=== PATIENT | male | born 1990 | race Caucasian/White ===

== ENCOUNTER 2017-10-28 07:29 | Emergency (ER) | payer BC ==
[2017-10-28] MEDS ORDERED: KETOROLAC 30 MG/ML INJ ONE (07:55)
[2017-10-28] MEDS ORDERED: NA CHLORIDE 0.9% 1,000 ML ONE (07:56)
[2017-10-28 08:12] LABS: Absolute Lymphocytes (CBC) 2.5 K/uL (0.7-4.9); Absolute Monocytes 0.7 K/uL (0.1-1.3); Absolute Neutrophil 5.8 K/uL (1.8-8.0); Basophils % 0.3 % (0-1.3); Eosinophils % 2.1 % (0-4.4); Hematocrit 44.8 % (39.6-49.0); Lymphocytes % 26.7 % (15.3-44.8); MCH 28.6 pg (27.0-35.0); MCV 85.9 fL (80-100); MPV 9.3 fL (7.6-11.3); Monocytes % 7.6 % (3.3-12.3); RBC Red Blood Cell Count 5.21 M/uL (4.33-5.43)
[2017-10-28 08:31] LABS: ALT/SGPT 29 U/L (12-78); AST/SGOT 16 U/L (15-37); Albumin 3.8 g/dL (3.4-5.0); Alkaline Phosphatase 119 U/L (45-117); BUN Blood Urea Nitrogen 17 mg/dL (7-18); Bicarbonate 24 mmol/L (21-32); Bilirubin Direct < 0.1 mg/dL (0-0.2); Bilirubin Total 0.3 mg/dL (0.2-1.0); Glucose Level 92 mg/dL (74-106); Potassium 4.3 mmol/L (3.5-5.1); Sodium Level 141 mmol/L (136-145)
--- NOTE | 2017-10-28 09:11 | RAD REPORT ---
EXAM DESCRIPTION: Alex Wilson (2 Views)10/28/2017 8:40 am CLINICAL HISTORY: Cough COMPARISON: None FINDINGS: The lungs appear clear of acute infiltrate. The heart is normal size IMPRESSION: No acute abnormalities displayed
--- NOTE | 2017-10-28 10:01 | RAD REPORT ---
EXAM DESCRIPTION: US - Abdomen Exam Limited - 10/28/2017 8:21 am CLINICAL HISTORY: Right upper quadrant pain. COMPARISON: None. FINDINGS: No gallstones, sludge or other abnormalities within the gallbladder lumen. There is no wal l thickening or pericholecystic fluid. No common duct stone or biliary tree dilatation identified. IMPRESSION: Normal gallbladder and biliary tree ultrasound.
--- NOTE | 2017-10-28 10:50 | EDPHYS ---
Physician Documentation [facility] Name: Selam Saavedra Age: 26 yrs Sex: Male : 1990 Arrival Date: 10/28/2017 Time: 07:34 Bed 20 Private MD: Out, [facility] ED Physician Nickolas Back HPI: 10/28 07:55 This 26 yrs old Male presents to ER via Ambulatory with complaints of Lung snw Pain. 07:55 The patient or guardian reports pain on deep inspiration. Onset: The symptoms/episode snw began/occurred gradually, and became worse this morning. Modifying factors: The symptoms are alleviated by nothing. Associated signs and symptoms: The patient has no apparent associated signs or symptoms. Severity of symptoms: At their worst the symptoms were moderate. The patient has not experienced similar symptoms in the past. It is unknown whether or not the patient has recently seen a physician. Historical: - Allergies: 07:47 No Known Allergies; sv - Home Meds: 07:47 None [Active]; sv - PMHx: 07:47 esophageal hernia; sv - PSHx: 07:47 None; sv - Immunization history:: Adult Immunizations up to date. - Social history:: Smoking status: Patient uses tobacco products, smokes one-half pack cigarettes per day, Patient uses alcohol, every weekend. - Ebola Screening: : No symptoms or risks identified at this time. ROS: 07:51 Constitutional: Negative for fever, chills, and weight loss, Eyes: Negative for injury, snw pain, redness, and discharge, ENT: Negative for injury, pain, and discharge, Neck: Negative for injury, pain, and swelling, Cardiovascular: Negative for chest pain, palpitations, and edema, Abdomen/GI: Negative for abdominal pain, nausea, vomiting, diarrhea, and constipation, Back: Negative for injury and pain, : Negative for injury, bleeding, discharge, and swelling, MS/Extremity: Negative for injury and deformity, Skin: Negative for injury, rash, and discoloration, Neuro: Negative for headache, weakness, numbness, tingling, and seizure. 07:51 Respiratory: Positive for right lower rib/chest pain on deep inspiration. Exam: 07:51 Constitutional: This is a well developed, well nourished patient who is awake, alert, snw and in no acute distress. Head/Face: Normocephalic, atraumatic. Eyes: Pupils equal round and reactive to light, extra-ocular motions intact. Lids and lashes normal. Conjunctiva and sclera are non-icteric and not injected. Cornea within normal limits. Periorbital areas with no swelling, redness, or edema. ENT: Nares patent. No nasal discharge, no septal abnormalities noted. Tympanic membranes are normal and external auditory canals are clear. Oropharynx with no redness, swelling, or masses, exudates, or evidence of obstruction, uvula midline. Mucous membranes moist. Neck: Trachea midline, no thyromegaly or masses palpated, and no cervical lymphadenopathy. Supple, full range of motion without nuchal rigidity, or vertebral point tenderness. No Meningismus. Chest/axilla: Normal chest wall appearance and motion. Nontender with no deformity. No lesions are appreciated. Cardiovascular: Regular rate and rhythm with a normal S1 and S2. No gallops, murmurs, or rubs. Normal PMI, no JVD. No pulse deficits. Respiratory: Lungs have equal breath sounds bilaterally, clear to auscultation and percussion. No rales, rhonchi or wheezes noted. No increased work of breathing, no retractions or nasal flaring. Back: No spinal tenderness. No costovertebral tenderness. Full range of motion. Skin: Warm, dry with normal turgor. Normal color with no rashes, no lesions, and no evidence of cellulitis. MS/ Extremity: Pulses equal, no cyanosis. Neurovascular intact. Full, normal range of motion. Neuro: Awake and alert, GCS 15, oriented to person, place, time, and situation. Cranial nerves II-XII grossly intact. Motor strength 5/5 in all extremities. Sensory grossly intact. Cerebellar exam normal. Normal gait. 07:51 Abdomen/GI: Exam negative for acute changes, Indicators: Olivares's sign is positive, weakly. Vital Signs: 07:48 BP 125 / 87; Pulse 57; Resp 18; Temp 97.9(O); Pulse Ox 97% on R/A; Weight 90.72 kg (R); sv Height 5 ft. 9 in. (175.26 cm) (R); Pain 4/10; 09:19 BP 124 / 68; Pulse 82; Resp 18; Pulse Ox 98% on R/A; sv 09:58 BP 120 / 67; Pulse 78; Resp 18; Pulse Ox 98% ; sv 11:13 BP 121 / 70; Pulse 70; Resp 18; Pulse Ox 99% ; sv 07:48 Body Mass Index 29.53 (90.72 kg, 175.26 cm) sv MDM: 07:38 Patient medically screened. snw 10:53 Data reviewed: vital signs, nurses notes. Data interpreted: Pulse oximetry: on room air snw is 98 %. Interpretation: normal. Counseling: I had a detailed discussion with the patient and/or guardian regarding: the historical points, exam findings, and any diagnostic results supporting the discharge/admit diagnosis, lab results, radiology results, the need for outpatient follow up, to return to the emergency department if symptoms worsen or persist or if there are any questions or concerns that arise at home, smoking cessation. Special discussion: Based on the history and exam findings, there is no indication for further emergent testing or inpatient evaluation. I discussed with the patient/guardian the need to see the primary care provider for further evaluation of the symptoms. 10/28 07:45 Order name: CBC with Diff; Complete Time: 08:59 snw 10/28 07:45 Order name: Chem 7; Complete Time: 08:34 snw 10/28 07:45 Order name: Chest Pa And Lat (2 Views) XRAY; Complete Time: 09:18 snw 10/28 07:45 Order name: DD; Complete Time: 09:00 snw 10/28 07:45 Order name: US Abdomen Limited; Complete Time: 10:01 snw 10/28 07:45 Order name: LFT's; Complete Time: 08:34 snw Administered Medications: 07:55 Drug: NS 0.9% 1000 ml Route: IV; Rate: 125 ml/hr; Site: right antecubital; sv 11:15 Follow up: Response: No adverse reaction; IV Status: Order to discontinue infusion sv 08:29 Drug: TORadol 30 mg Route: IVP; Site: right antecubital; sv 09:19 Follow up: Response: No adverse reaction sv Disposition: 10/28/17 10:49 Discharged to Home. Impression: Muscle spasm. - Condition is Stable. - Discharge Instructions: Costochondritis, Muscle Strain. - Prescriptions for Diclofenac Sodium 75 mg Oral Tablet Sustained Release - take 1 tablet by ORAL route 2 times per day; 30 tablet. orphenadrine citrate 100 mg Oral Tablet Sustained Release - take 1 tablet by ORAL route 2 times per day As needed; 20 tablet. - Work release form, Medication Reconciliation Form, Thank You Letter, Antibiotic Education, Prescription Opioid Use form. - Follow up: Private Physician; When: 2 - 3 days; Reason: Recheck today's complaints, Continuance of care, Re-evaluation by your physician. Follow up: Emergency Department; When: As needed; Reason: Worsening of condition. Addendum: 10/30/2017 14:41 Co-signature as Attending Physician, Nickolas Back MD I agree with the assessment and w a plan of care. Signatures: Dispatcher [employer] Nena Stone RN RN Yana Escobar, SUPERVISOR FUSING ROOM-C SUPERVISOR FUSING ROOM-Csnw Nickolas Back MD MD wa Corrections: (The following items were deleted from the chart) 10/28 11:14 10:49 10/28/2017 10:49 Discharged to Home. Impression: Muscle spasm. Condition is sv Stable. Forms are Medication Reconciliation Form, Thank You Letter, Antibiotic Education, Prescription Opioid Use. Follow up: Private Physician; When: 2 - 3 days; Reason: Recheck today's complaints, Continuance of care, Re-evaluation by your physician. Follow up: Emergency Department; When: As needed; Reason: Worsening of condition. snw
--- NOTE | 2017-10-28 10:50 | ER ---
Nurse's Notes [facility] Name: Selam Saavedra Age: 26 yrs Sex: Male : 1990 Arrival Date: 10/28/2017 Time: 07:34 Bed 20 Private MD: Out, [facility] Diagnosis: Muscle spasm Presentation: 10/28 07:40 Presenting complaint: Patient states: right anterior rib cage pain x 3 days. First day sv it hurt with deep inspiration and now hurts with any respiration. Denies fever or leg pain. c/o cough. Transition of care: patient was not received from another setting of care. Onset of symptoms was October 25, 2017. Risk Assessment: Do you want to hurt yourself or someone else? Patient reports no desire to harm self or others. Initial Sepsis Screen: Does the patient meet any 2 criteria? No. Patient's initial sepsis screen is negative. Does the patient have a suspected source of infection? No. Patient's initial sepsis screen is negative. Care prior to arrival: None. 07:40 Method Of Arrival: Ambulatory sv 07:40 Acuity: SVEN 3 sv Triage Assessment: 07:40 General: Appears in no apparent distress. uncomfortable, well developed, Behavior is sv calm, cooperative, appropriate for age, Denies fever. Pain: Complains of pain in right lateral anterior chest Pain does not radiate. Pain currently is 4 out of 10 on a pain scale. at worst was 6 out of 10 on a pain scale. Quality of pain is described as sharp, Pain began 2-3 days ago. Is intermittent, episodic, Aggravated by breathing. EENT: No signs and/or symptoms were reported regarding the EENT system. Neuro: Level of Consciousness is awake, alert, obeys commands, Oriented to person, place, time, situation, Moves all extremities. Full function Gait is steady, Speech is normal. Cardiovascular: Patient's skin is warm and dry. Respiratory: Reports cough that is non-productive, pain with respiration since 3 days ago Respiratory effort is even, unlabored, Respiratory pattern is regular, symmetrical. GI: No signs and/or symptoms were reported involving the gastrointestinal system. : No signs and/or symptoms were reported regarding the genitourinary system. Derm: Skin is pink, warm \T\ dry. Musculoskeletal: Range of motion: intact in all extremities. Historical: - Allergies: 07:47 No Known Allergies; sv - Home Meds: 07:47 None [Active]; sv - PMHx: 07:47 esophageal hernia; sv - PSHx: 07:47 None; sv - Immunization history:: Adult Immunizations up to date. - Social history:: Smoking status: Patient uses tobacco products, smokes one-half pack cigarettes per day, Patient uses alcohol, every weekend. - Ebola Screening: : No symptoms or risks identified at this time. Screenin:51 Abuse screen: Denies threats or abuse. Denies injuries from another. Nutritional sv screening: No deficits noted. Tuberculosis screening: No symptoms or risk factors identified. Fall Risk None identified. Assessment: 07:51 Reassessment: See triage assessment. sv 09:19 Reassessment: Patient appears in no apparent distress at this time. No changes from sv previously documented assessment. Patient and/or family updated on plan of care and expected duration. Pain level reassessed. Patient is alert, oriented x 3, equal unlabored respirations, skin warm/dry/pink. 11:13 Reassessment: Patient appears in no apparent distress at this time. No changes from sv previously documented assessment. Patient and/or family updated on plan of care and expected duration. Pain level reassessed. Patient is alert, oriented x 3, equal unlabored respirations, skin warm/dry/pink. Vital Signs: 07:48 BP 125 / 87; Pulse 57; Resp 18; Temp 97.9(O); Pulse Ox 97% on R/A; Weight 90.72 kg (R); sv Height 5 ft. 9 in. (175.26 cm) (R); Pain 4/10; 09:19 BP 124 / 68; Pulse 82; Resp 18; Pulse Ox 98% on R/A; sv 09:58 BP 120 / 67; Pulse 78; Resp 18; Pulse Ox 98% ; sv 11:13 BP 121 / 70; Pulse 70; Resp 18; Pulse Ox 99% ; sv 07:48 Body Mass Index 29.53 (90.72 kg, 175.26 cm) sv ED Course: 07:34 Patient arrived in ED. sb2 07:36 Out, of [facility] is Private Physician. sb2 07:38 Y[facility] Marte F[facility]-C [facility]. snw 07:38 Abdifatah Redmond MD is Attending Physician. snw 07:44 Nena Silver, RN is Primary Nurse. sv 07:46 Triage completed. sv 07:49 Arm band placed on right wrist. sv 07:51 Patient has correct armband on for positive identification. Bed in low position. Call sv light in reach. Adult w/ patient. Pulse ox on. NIBP on. Door closed. Head of bed elevated. 08:00 Initial lab(s) drawn, by me, sent to lab. Inserted saline lock: 20 gauge in right dh3 antecubital area, using aseptic technique. Blood collected. 08:03 Patient moved to radiology via wheelchair. jb2 08:08 X-ray completed. Patient tolerated procedure well. Patient taken to ultrasound. jb2 08:20 Ultrasound completed. Patient tolerated well. Patient moved back from ultrasound. aa4 08:21 US Abdomen Limited In Process Unspecified. EDMS 08:32 Chest Pa And Lat (2 Views) XRAY In Process Unspecified. EDMS 08:36 Nickolas Back MD is Attending Physician. snw 11:13 No provider procedures requiring assistance completed. IV discontinued, intact, sv bleeding controlled, No redness/swelling at site. Pressure dressing applied. Administered Medications: 07:55 Drug: NS 0.9% 1000 ml Route: IV; Rate: 125 ml/hr; Site: right antecubital; sv 11:15 Follow up: Response: No adverse reaction; IV Status: Order to discontinue infusion sv 08:29 Drug: TORadol 30 mg Route: IVP; Site: right antecubital; sv 09:19 Follow up: Response: No adverse reaction sv Outcome: 10:49 Discharge ordered by . snw 11:14 Discharged to home ambulatory, with family. sv 11:14 Condition: stable 11:14 Discharge instructions given to patient, Instructed on discharge instructions, follow up and referral plans. no drinking with medication, no driving heavy equipment, medication usage, Demonstrated understanding of instructions, follow-up care, medications, Prescriptions given X 2. 11:14 Patient left the ED. sv Signatures: Dispatcher [employer] [facility] Nena Silver, CHIARA RN sv Yana Marte, CUSTOMER ASSOCIATE-C CUSTOMER ASSOCIATE-Csnw Tirso Mahajan jb2 Rupali Cardoso aa4 Kaur Shankar 3 Amira Mayo sb2 Corrections: (The following items were deleted from the chart) 07:47 07:40 Acuity: SVEN 4 sv sv
== END 2017-10-28 11:14 | disposition home or self-care (01) ==
LOC: ER 07:29
DX: R25.2 Cramp and spasm (principal); F17.210 Nicotine dependence, cigarettes, uncomplicated
CPT/HCPCS: 36415; 71046; 76705; 80048; 80076; 85025; 85379; 96361; 96374; 99284; J7030

== ENCOUNTER → 2023-08-05 | Emergency (ER) | payer BC, SELFPAY ==
[~2023-08-05] MED LIST: NA CHLORIDE 0.9% 1,000 ML ONE
--- OUTSIDE RECORDS SUMMARY | 2023-08-05 11:02 | XMS REPORT | Continuity of Care Document ---
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 Name Role Phone Monet Perez Attending Clinician Unavailable Monet Perez Attending Clinician [phone] Aaron Mello Attending Clinician Unavailable Aaron Mello Attending Clinician [phone] Payers Payer Name Policy Type Policy Number Effective Date Expirati on Date Source Problems Condition Name Condition Details Condition Category Status Onset Date Resolution Date Last Treatment Date Treating Clinician Comments Source Herpes simplex Herpes simplex Problem (finding) Active (qualif ier value) [facility] Chest wall pain Chest wall pain Problem (finding) Active (qualif ier value) [facility] Family History Family Member Diagnosis Comments Start Date Stop Date Sourc e Mother Alive and well 2011-09-10 00:00:00 2011-09-10 00:00:00 [facility] Father Alive and well 2011-09-10 00:00:00 2011-09-10 00:00:00 [facility] Social History Social Habit Start Date Stop Date Quantity Comments Source Alcohol intake (observable entity) 2022-10-15 00:00:00 beer & liquor > 5 drinks weekly [facility] History of tobacco use 2022-10-15 00:00:00 Occasional cigarette smoker [facility] Tobacco use and exposure (observable entity) 2022-10-15 00:00:00 Cigarette: Age Started: 16 Quantity Details - Cigarette: 1 Packs per day [facility] Sex Assigned At Male [facility] Smoking Status Start Date Stop Date Source Unknown if ever smoked [facility] Heavy tobacco smoker 2022-10-15 00:00:00 [facility] Medications Ordered Medication Name Filled Medication Name Start Date Stop Date Current Medication? Ordering Clinician Indication Dosage Frequency Signature (SIG) Comments Components Source acyclovir 400 mg tablet 10-15 00:00: 00 No 1{table t} Q8H take 1 tablet by oral route every 8 hours [Pat Resp = 0 pct;] Group D [facility] prednisone 10 mg tablet 2022-0 10-15 00:00: 00 No take 4 tablet by oral route daily for 3 days, then 3 for 3 days, then 2 for 3 days, then 1 for 3 days, then stop [Pat Resp = 0 pct;] Group D [facility] tizanidine 4 mg tablet 2022-0 10-15 00:00: 00 No take 1/2 to 1 tablet by oral route at bedtime for muscle relaxer [Pat Resp = 0 pct;] Group D [facility] acyclovir 400 mg tablet 2022-0 10-15 00:00: 00 No 1{table t} Q8H take 1 tablet by oral route every 8 hours [Pat Resp = 0 pct;] Group D [facility] prednisone 10 mg tablet 0 10-15 00:00: 00 No take 4 tablet by oral route daily for 3 days, then 3 for 3 days, then 2 for 3 days, then 1 for 3 days, then stop [Pat Resp = 0 pct;] Group D [facility] tizanidine 4 mg tablet 0 10-15 00:00: 00 No take 1/2 to 1 tablet by oral route at bedtime for muscle relaxer [Pat Resp = 0 pct;] Group D [facility] acyclovir 400 mg tablet 10-15 00:00: 00 No 1{table t} Q8H take 1 tablet by oral route every 8 hours [Pat Resp = 0 pct;] Group D [facility] prednisone 10 mg tablet 0 10-15 00:00: 00 No take 4 tablet by oral route daily for 3 days, then 3 for 3 days, then 2 for 3 days, then 1 for 3 days, then stop [Pat Resp = 0 pct;] Group D [facility] tizanidine 4 mg tablet 2022-0 10-15 00:00: 00 No take 1/2 to 1 tablet by oral route at bedtime for muscle relaxer [Pat Resp = 0 pct;] Group D [facility] acyclovir 400 mg tablet 12-23 00:00: 00 10-15 00:00 :00 No 1{table t} Q8H take 1 tablet by oral route every 8 hours [No discount] [facility] acyclovir 400 mg tablet 12-23 00:00: 00 10-15 00:00 :00 No 1{table t} Q8H take 1 tablet by oral route every 8 hours [No discount] [facility] Vital Signs Vital Name Observation Time Observation Value Comments S edgar Body height 2022-10-15 09:06:00 173.99 cm [facility] Body Weight 2022-10-15 09:06:00 92.079 kg [facility] Systolic 2022-10-15 09:06:00 110 mm[Hg] [facility] Diastolic 2022-10-15 09:06:00 67 mm[Hg] [facility] th and Wellness Heart Rate 2022-10-15 09:06:00 65 /min [facility] Body Temperature 2022-10-15 09:06:00 36.44 Carlee [facility] Respiratory rate 2022-10-15 09:06:00 18 /min [facility] Body mass index 2022-10-15 09:06:00 30.42 kg/m2 [facility] SaO2 % BldA PulseOx 2022-10-15 09:06:00 99 /min [facility] Procedures Procedure Date / Time Performed Performing Clinicia n Source Nominal Fee 2022-10-15 00:00:00 [facility] Established Patient Office Visit-Level Three 2022-10-15 00:00:00 [facility] Herpes Simplex, Type 1 And 2 IgG (chronic) 2016-12-19 00:00:00 [facility] Urinalysis, Auto W/O Scope 2016-12-16 00:00:00 [facility] Established Patient Office Visit-Level Four 2016-12-16 00:00:00 [facility] Chylmd Trach DNA Amp Probe 2016-12-16 00:00:00 [facility] N.Gonorrhea DNA Amp Prob 2016-12-16 00:00:00 [facility] Urinalysis culture and sensitivity 2016-12-16 00:00:00 [facility] HIV-1 AG W/HIV-1 & HIV-2 AB 2016-12-16 00:00:00 [facility] and [facility] Flagyl 500mg X4 2014-06-12 00:00:00 [facility] Rocephin injection per 250mg (state supplied) 2014-06-12 00:00:00 [facility] Zithromax 250mg State X4 2014-06-12 00:00:00 [facility] Established Patient Office Visit-Level Two 2014-06-12 00:00:00 [facility] Syphilis Test, qualitative 2014-06-12 00:00:00 [facility] HIV 1 Preliminary Test with Confirmation 2014-06-12 00:00:00 [facility] N.Gonorrhea DNA Amp Prob 2014-06-12 00:00:00 [facility] Chylmd Trach DNA Amp Probe 2014-06-12 00:00:00 [facility] THER/PROPH/DIAG INJ, SC/IM 2014-06-12 00:00:00 [facility] Rocephin injection per 250mg (state supplied) 2011-09-10 00:00:00 [facility] Zithromax 250mg [facility] X4 2011-09-10 00:00:00 [facility] Chlamydia / Gonorrhea / Genprobe 2011-09-10 00:00:00 [facility] HIV 1 Preliminary Test with Confirmation 2011-09-10 00:00:00 [facility] Syphilis Test, qualitative 2011-09-10 00:00:00 [facility] Flagyl 500mg X4 2011-09-10 00:00:00 [facility] New Patient Office Visit-Level One 2011-09-10 00:00:00 [facility] Encounters Start Date/Time End Date/Time Encounter Type Admission Type Attending Clinicians Care Facility Care Department Encounter ID Source 2022-12-15 13:23:00 2022-12-15 13:23:00 Outpatient Monet Perez CHW [id number] [facility] 2022-12-15 13:23:00 2022-12-15 13:23:00 Outpatient Monet Perez [id number] [facility] 2022-10-15 09:00:00 2022-10-15 09:00:00 Outpatient Aaron Mello [facility] [id number] [facility] 2022-10-15 09:00:00 2022-10-15 09:00:00 Arcelia hernandez Patient Office Visit-Jori santos Aaron Up [facility] [id number] [facility] 2022-10-15 08:46:00 2022-10-15 08:46:00 Outpatient Aaron Mello [facility] [id number] [facility] 2016-12-23 08:58:00 2016-12-23 08:58:00 Outpatient [facility] [id number] [facility] 2016-12-19 08:48:00 2016-12-19 08:48:00 Outpatient [facility] [id number] [facility] 2016-12-16 16:15:00 2016-12-16 16:15:00 Arcelia hernandez Patient Office Visit-Jori santos Kory [facility] [id number] [facility] 2014-06-12 14:00:00 2014-06-12 14:00:00 Arcelia hernandez Patient Office Visit-Jori Pena [facility] [id number] [facility] 2011-09-10 19:40:00 2011-09-10 19:40:00 New Patient Office Visit-Jori Jacobs [facility] [id number] [facility]
[2023-08-05 11:37] LABS: Absolute Eosinophils 0.1 K/uL (0-0.5); Absolute Lymphocytes (CBC) 1.7 K/uL (0.7-4.9); Absolute Monocytes 0.5 K/uL (0.1-1.3); Absolute Neutrophil 3.7 K/uL (1.8-8.0); Basophils % 0.7 % (0-1.3); Eosinophils % 1.9 % (0-4.4); Hematocrit 43.7 % (39.6-49.0); Lymphocytes % 28.7 % (15.3-44.8); MCH 30.4 pg (27.0-35.0); MCHC 34.3 g/dL (32.0-36.0); MCV 88.7 fL (80-100); MPV 8.9 fL (7.6-11.3); Monocytes % 8.4 % (3.3-12.3); Neutrophils % 60.3 % (41.7-73.7); Platelets 208 thou/uL (152-406); RBC Red Blood Cell Count 4.92 M/uL (4.33-5.43); Red Cell Distribution Width 13.4 % (12.1-15.2)
--- NOTE | 2023-08-05 11:52 | RAD REPORT ---
EXAM DESCRIPTION: Alex Single View08/05/2023 11:46 am CLINICAL HISTORY: CHEST PAIN COMPARISON: Chest Pa And Lat (2 Views) dated 10/28/2017 TECHNIQUE: Portable AP view of the chest. FINDINGS: The lungs are clear. No pneumothorax or effusion. The cardiomediastinal contours are unre markable. IMPRESSION: No acute cardiopulmonary process.
[2023-08-05 11:57] LABS: PT Prothrombin Time 12.1 SECONDS (9.5-12.5)
[2023-08-05 12:02] LABS: ALT/SGPT 34 U/L (16-61); AST/SGOT 19 U/L (15-37); Albumin 3.7 g/dL (3.4-5.0); Albumin/Globulin Ratio 1.2 (1.1-1.8); Alkaline Phosphatase 104 U/L (45-117); Anion Gap 7.7 mEq/L (5.0-15.0); BUN Blood Urea Nitrogen 22 mg/dL (7-18); Bicarbonate 25 mEq/L (21-32); Bilirubin Direct 0.1 mg/dL (0-0.2); Bilirubin Indirect, Calculated 0.2 mg/dL (0.2-0.8); Bilirubin Total 0.3 mg/dL (0.2-1.0); Globulin 3.2 g/dL (2.3-3.5); Glomerular Filtration Rate 113 ml/min (=/>90); Glucose Level 96 mg/dL (74-106); Lipase 25 U/L (13-75); Magnesium 2.2 mg/dL (1.6-2.4); NT PRO-BNP 21 pg/mL (<125); Potassium 3.7 mEq/L (3.5-5.1); Protein, Total 6.9 g/dL (6.4-8.2); Sodium Level 137 mEq/L (136-145)
[2023-08-05 12:05] LABS: D-Dimer < 215 FEUng/mL (<500)
[2023-08-05 12:21] LABS: Troponin High Sensitivity < 3.0 pg/mL (<58.9)
--- NOTE | 2023-08-05 13:38 | EDPHYS ---
Physician Documentation [facility] Name: Selam Saavedra Age: 32 yrs Sex: Male : 1990 Arrival Date: 08/05/2023 Time: 10:58 Bed DX1 Private MD: ED Physician Judd Keith HPI: 08/04 13:34 This 32 yrs old Male presents to ER via EMS with complaints of Chest Pain. sonia 13:34 The patient or guardian reports chest pain that is located primarily in the anterior sonia chest wall, left. The pain does not radiate. Associated signs and symptoms: The patient has no apparent associated signs or symptoms. The chest pain is described as sharp. Duration: The patient or guardian reports multiple episodes, with no pattern. Modifying factors: The symptoms are alleviated by remaining still, the symptoms are aggravated by palpation of area. Severity of pain: At its worst the pain was mild in the emergency department the pain is unchanged. The patient has not experienced similar symptoms in the past. Historical: - Allergies: 11: No Known Allergies; iw - Home Meds: 11:03 None [Active]; iw - PMHx: 11:03 esophageal hernia; iw - Immunization history:: Adult Immunizations not up to date. - Social history:: Smoking status: Reported history of juuling and/or vaping. Patient/guardian denies using tobacco, the patient reports quitting approximately 10 years ago. - Family history:: not pertinent. ROS: 13:34 Constitutional: Negative for fever, chills, and weight loss, Eyes: Negative for injury, sonia pain, redness, and discharge, ENT: Negative for injury, pain, and discharge, Neck: Negative for injury, pain, and swelling, Respiratory: Negative for shortness of breath, cough, wheezing, and pleuritic chest pain, Abdomen/GI: Negative for abdominal pain, nausea, vomiting, diarrhea, and constipation, Back: Negative for injury and pain, : Negative for injury, bleeding, discharge, and swelling, MS/Extremity: Negative for injury and deformity, Skin: Negative for injury, rash, and discoloration, Neuro: Negative for headache, weakness, numbness, tingling, and seizure, Psych: Negative for depression, anxiety, suicide ideation, homicidal ideation, and hallucinations, Allergy/Immunology: Negative for hives, rash, and allergies, Endocrine: Negative for neck swelling, polydipsia, polyuria, polyphagia, and marked weight changes, Hematologic/Lymphatic: Negative for swollen nodes, abnormal bleeding, and unusual bruising, 13:34 Cardiovascular: Positive for chest pain, of the chest, Exam: 13:36 Constitutional: This is a well developed, well nourished patient who is awake, alert, sonia and in no acute distress. Head/Face: Normocephalic, atraumatic. Eyes: Pupils equal round and reactive to light, extra-ocular motions intact. Lids and lashes normal. Conjunctiva and sclera are non-icteric and not injected. Cornea within normal limits. Periorbital areas with no swelling, redness, or edema. ENT: Nares patent. No nasal discharge, no septal abnormalities noted. Tympanic membranes are normal and external auditory canals are clear. Oropharynx with no redness, swelling, or masses, exudates, or evidence of obstruction, uvula midline. Mucous membranes moist. Neck: Trachea midline, no thyromegaly or masses palpated, and no cervical lymphadenopathy. Supple, full range of motion without nuchal rigidity, or vertebral point tenderness. No Meningismus. Chest/axilla: Normal chest wall appearance and motion. Nontender with no deformity. No lesions are appreciated. Cardiovascular: Regular rate and rhythm with a normal S1 and S2. No gallops, murmurs, or rubs. Normal PMI, no JVD. No pulse deficits. Respiratory: Lungs have equal breath sounds bilaterally, clear to auscultation and percussion. No rales, rhonchi or wheezes noted. No increased work of breathing, no retractions or nasal flaring. Abdomen/GI: Soft, non-tender, with normal bowel sounds. No distension or tympany. No guarding or rebound. No evidence of tenderness throughout. Back: No spinal tenderness. No costovertebral tenderness. Full range of motion. Male : Normal genitalia with no discharge or lesions. Skin: Warm, dry with normal turgor. Normal color with no rashes, no lesions, and no evidence of cellulitis. MS/ Extremity: Pulses equal, no cyanosis. Neurovascular intact. Full, normal range of motion. Neuro: Awake and alert, GCS 15, oriented to person, place, time, and situation. Cranial nerves II-XII grossly intact. Motor strength 5/5 in all extremities. Sensory grossly intact. Cerebellar exam normal. Normal gait. Psych: Awake, alert, with orientation to person, place and time. Behavior, mood, and affect are within normal limits. 13:36 ECG was reviewed by the Attending Physician. 13:37 Musculoskeletal/extremity: DVT Exam: No signs of deep vein thrombosis. no pain, no sonia swelling, no tenderness, negative Homans' sign noted on exam, no appreciated bluish discoloration, no erythema, no increased warmth, Vital Signs: 11:05 BP 118 / 69; Pulse 72; Resp 16; Temp 98.3; Pulse Ox 97% on R/A; Weight 92.08 kg; Height iw 5 ft. 8 in. ; Pain 3/10; 12:14 BP 112 / 68; Pulse 68; Resp 18; Pulse Ox 98% on R/A; Pain 3/10; iw 11:05 Body Mass Index 30.87 (92.08 kg, 172.72 cm) iw 11:05 Pain Scale: Adult iw 12:14 Pain Scale: Adult iw MDM: 11:05 Patient medically screened. 08/04 11:07 Order name: Basic Metabolic Panel; Complete Time: 13:33 08/04 11:07 Order name: CBC with Diff; Complete Time: 13:33 08/04 11:07 Order name: D-Dimer; Complete Time: 13:33 08/04 11:07 Order name: LFT's; Complete Time: 13:33 08/04 11:07 Order name: Magnesium; Complete Time: 13:33 08/04 11:07 Order name: NT PRO-BNP; Complete Time: 13:33 08/04 11:07 Order name: PT-INR; Complete Time: 13:33 08/04 11:07 Order name: Troponin HS; Complete Time: 13:33 08/04 11:07 Order name: Lipase; Complete Time: 13:33 08/04 11:07 Order name: XRAY Chest (1 view); Complete Time: 13:33 08/04 11:07 Order name: EKG; Complete Time: 11:08 08/04 11:07 Order name: EKG - Nurse/Tech; Complete Time: 12:02 08/04 11:07 Order name: IV Saline Lock; Complete Time: 11:08/04 11:07 Order name: Labs collected and sent; Complete Time: [facility] 08/04 11: Order name: O2 Per Protocol; Complete Time: [facility] 08/04 11: Order name: O2 Sat Monitoring; Complete Time: : [facility] EC:36 Rate is 61 beats/min. Rhythm is regular. QRS [place] is Normal. NM interval is normal. QRS sonia interval is normal. QT interval is normal. No Q waves. T waves are Normal. No ST changes noted. Clinical impression: Normal ECG and No evidence of ischemia. Interpreted by me. Reviewed by me. 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): aspirinchewable tablet 324 mg PO once; 81 mg tablets x 4 iw 12:14 Drug: NS 0.9% IV 1000 ml IV at 1 bolus Per protocol; 1000 mL bolus Route: IV; Rate: 1 iw bolus; Site: right forearm; 14:00 Follow up: IV Status: Completed infusion iw Disposition Summary: 08/05/23 13:38 Discharge Ordered Notes: Location: Home sonia Problem: new sonia Symptoms: have improved sonia Condition: Stable sonia Diagnosis - Chest pain, unspecified sonia Followup: sonia - With: Private Physician - When: 2 - 3 days - Reason: Recheck today's complaints, Continuance of care, Re-evaluation by your physician Followup: sonia - With: Deejay Meredith MD - When: 2 - 3 days - Reason: Recheck today's complaints, Continuance of care, Re-evaluation by your physician Discharge Instructions: - Discharge Summary Sheet sonia - Nonspecific Chest Pain, Adult sonia - Chest Wall Pain sonia - Chest Wall Pain, [id number] sonia - Nonspecific Chest Pain, Adult, [id number] sonia - Aspirin and Your Heart sonia Forms: - Medication Reconciliation Form sonia - Thank You Letter sonia - Antibiotic Education sonia - Prescription Opioid Use sonia - Patient Portal Instructions sonia - Leadership Thank You Letter sonia - Work release form iw Prescriptions: - Pepcid 20 mg Oral tablet - take 1 tablet ORAL route every 12 hours for 21 days; 42 tablet; Refills: 0, sonia Product Selection Permitted Signatures: Dispatcher [employer] Judd Harper MD MD cha Williams, Irene, RN RN iw
--- NOTE | 2023-08-05 13:38 | ER ---
Nurse's Notes [facility] Name: Selam Saavedra Age: 32 yrs Sex: Male : 1990 Arrival Date: 08/05/2023 Time: 10:58 Bed DX1 Private MD: Diagnosis: Chest pain, unspecified Presentation: 08/04 11:02 Chief complaint: Patient states: left sided chest pain started last night, worse today, iw intermittent, no cardiac hx , pain 3/10. Coronavirus screen: At this time, the client does not indicate any symptoms associated with coronavirus-19. Ebola Screen: Patient negative for fever greater than or equal to 101.5 degrees Fahrenheit, and additional compatible Ebola Virus Disease symptoms Patient denies travel to an Ebola-affected area in the 21 days before illness onset. No symptoms or risks identified at this time. Initial Sepsis Screen: Does the patient meet any 2 criteria? No. Patient's initial sepsis screen is negative. Does the patient have a suspected source of infection? No. Patient's initial sepsis screen is negative. Risk Assessment: Do you want to hurt yourself or someone else? Patient reports no desire to harm self or others. Onset of symptoms was August 04, 2023. 11:02 Method Of Arrival: EMS: [facility] iw 11:02 Acuity: SVEN 3 iw Historical: - Allergies: 11:03 No Known Allergies; iw - Home Meds: 11: None [Active]; iw - PMHx: 11:03 esophageal hernia; iw - Immunization history:: Adult Immunizations not up to date. - Social history:: Smoking status: Reported history of juuling and/or vaping. Patient/guardian denies using tobacco, the patient reports quitting approximately 10 years ago. - Family history:: not pertinent. Screenin:04 [facility] ED Fall Risk Assessment (Adult) Score/Fall Risk Level 0 - 2 = Low Risk. Abuse iw screen: Denies threats or abuse. Denies injuries from another. Nutritional screening: No deficits noted. Tuberculosis screening: No symptoms or risk factors identified. Assessment: 11:03 General: Appears in no apparent distress. Behavior is calm, cooperative. Pain: iw Complains of pain in anterior aspect of left upper chest and left breast Pain does not radiate. Pain: Pain currently is 3 out of 10 on a pain scale. Pain began 1 day ago. Neuro: Level of Consciousness is awake, alert, obeys commands, Oriented to person, place, time, situation, Gas Pipe Layer are equal bilaterally. Cardiovascular: Reports chest pain, Patient's skin is warm and dry. Vital Signs: 11:05 BP 118 / 69; Pulse 72; Resp 16; Temp 98.3; Pulse Ox 97% on R/A; Weight 92.08 kg; Height iw 5 ft. 8 in. ; Pain 3/10; 12:14 BP 112 / 68; Pulse 68; Resp 18; Pulse Ox 98% on R/A; Pain 3/10; iw 11:05 Body Mass Index 30.87 (92.08 kg, 172.72 cm) iw 11:05 Pain Scale: Adult iw 12:14 Pain Scale: Adult iw ED Course: 11:01 Patient arrived in ED. iw 11:01 Lay Ocampo, RN is Primary Nurse. iw 11:03 Triage completed. iw 11:03 Arm band placed on. iw 11:03 Patient has correct armband on for positive identification. Pulse ox on. NIBP on. iw 11:04 Maintain EMS IV. Dressing intact. Good blood return noted. Site clean \T\ dry. Gauge \T\ iw site: 20 RAC. Patient maintains SpO2 saturation greater than 95% on room air. 11:05 Judd Keith MD is Attending Physician. sonia 11:47 XRAY Chest (1 view) In Process Unspecified. EDMS 13:37 Deejay Meredith MD is Referral Physician. sonia 14:21 No provider procedures requiring assistance completed. IV discontinued, intact, iw bleeding controlled, No redness/swelling at site. Pressure dressing applied. 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 iw Outcome: 13:38 Discharge ordered by . sonia 14:21 Discharged to home ambulatory, iw 14:21 Condition: good 14:21 Discharge instructions given to patient, Instructed on discharge instructions, follow up and referral plans. medication usage, Demonstrated understanding of instructions, follow-up care, medications, Prescriptions given X 1, 14:22 Patient left the ED. bc6 Signatures: Dispatcher [employer] Judd Harper MD MD cha Williams, Irene, RN RN iw [place], Breana bc6
[2023-08-05 14:32] VITALS: BP 112/68; TEMP 98.3; O2SAT 98
--- NOTE | 2023-08-06 14:01 | EKG ---
Test Date: 2023-08-05 Test Time: 11:49:35 Power Shear Operator: DERREK MEASUREMENT RESULTS: Intervals: Rate: 61 AL: 142 QRSD: 86 QT: 390 QTc: 392 Rickman: P: 54 AL: 142 QRS: 72 T: 67 INTERPRETIVE STATEMENTS: Normal sinus rhythm Normal ECG No previous ECG available for comparison Electronically Signed On 08-06-23 13:59:43 CDT by Deejay Meredith
== END ==
LOC: ER 10:58
DX: R07.89 Other chest pain (principal)
CPT/HCPCS: 36415; 71045; 80048; 80076; 83690; 83735; 83880; 84484; 85025; 85379; 85610; 93005; J7030